=== PATIENT | female | born 1945 | race Caucasian/White ===

== ENCOUNTER 2016-02-15 09:00 | Outpatient (RCR) | payer MEDICARE ==
--- NOTE | 2015-12-12 13:24 | PT/OT/ST INITIAL EVALUATION ---
Department of Health and Human Services Form Approved Health Care Financing Administration B No. [id number] PLAN OF CARE/ASSESSMENT FOR OUTPATIENT REHABILITATION (Complete for Initial Claims Only) 1. LAST NAME Shlomo FIRST NAME Sofie Osborne 2. ACC # [id number] 3. [facility] [phone] 4. PROVIDER NO. [id number] 5. TYPE: X PT 6. PRIOR THERAPY (Same condition) 7. PRIMARY DX Right sacroiliitis 8. SECONDARY DX Low back pain with radiculopathy 9. ONSET DATE 3 to 4 days ago 10. REFERRAL DATE 12/07/15 11. SOC. DATE/TIME 12/07/2015 13:09 12. PRIOR LEVEL OF FUNCTION; PERTINENT HISTORY (Prior therapy results, reason for referral.) S: Prior to therapy, the patient did consent to today's evaluation and treatment. The patient is a 70-year-old female referred to physical therapy by Dr. Luna to address right sacroiliitis. The patient does rate her overall and general health as good. The patient states Saturday prior to this evaluation she noticed some pain in the front of her right hip where she had pain with each step. However, this resolved and the patient was able to get on with her day. The patient then, on Saturday, carried her heavy sewing machine and Saturday night had a significant increase in pain to the point where she was unable to roll over in bed or move. The patient called her daughter, who came over to get her moving and to see if she needed to seek medical assistance. The patient did state at this time she had difficulty walking, but was able to get around "well enough." The patient states the pain then resolved somewhat until she was having lunch with her daughter and was unable to get up from a seated position earlier on this date of 12/07/2015- her daughter then took her to the doctor. The patient states she is having significant pain in the front of her right leg, which runs down the front inside of her leg to approximately the knee level. A few times the patient states the pain has been down to her ankle. The patient additionally has a few pains that shoot up her back. 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 Prior function: Includes the patient being able to perform all activities around her house, self care, as well as being mobile within the community. Current function: Currently the patient requires assistance to get into community as her daughter has to drive her and help her walk between the cares and home or other buildings she has to visit. The patient is also needing assistance for self-care at this time and assistance with walking. Therapy History: None has been performed for this condition. No obstacles of delivery of care are observed. Maximal pain level is 10/10. The patient describes the pain as an intense aching sensation in her right lower extremity. Aggravating factors includes any prolonged positions. Relieving factors are unknown. Diagnostic tests: Include x-rays in the past, which do show osteoarthritis throughout her body. Past medical history: Includes breast cancer with left upper extremity lymphedema, low blood pressure and osteoarthritis. Medication list: Include prednisone for this condition and a muscle relaxer. The patient will provide a list of additional medications at a future visit. The patient's goal for physical therapy is to get rid of the pain and back to normal activities, especially sewing, which is a favorite hobby of hers. 13. INITIAL ASSESSMENT/SAFETY PRECAUTIONS/MEDICAL COMPLICATIONS (Level of function at start of care. Be specific, use objective measures, list problems.) O: APPEARANCE AND OBSERVATION: The patient presents as an older female, who ambulates with an antalgic gait pattern without an assistive device. The patient does have decreased right stance pain. PALPATION: With palpation, the patient does have significant increased pain and tightness with palpation of the right greater trochanter and the right IT band. The patient does have slight increased tone and tightness throughout the low back, hip flexor and quadriceps muscles. SPECIAL TESTS: Include deep tendon reflexes, which were 2+/4 or within normal limits for patellar and Achilles. The patient did have a positive crossover test indicating a slight left posterior innominate. She also had a positive MARGARITO test- indicating possible OA. RANGE OF MOTION/FLEXIBILITY: Hamstring flexibility on the right 147 degrees, on the left 159 degrees. Piriformis flexibility is 50% limited on the right, within normal limits on the left. Hip extension is lacking 10 degrees from neutral on the right, 0 degrees or to neutral on the left. Hamstring flexibility is within normal limits bilaterally with no signs of neural tension. STRENGTH: Throughout the left lower extremity is grossly 4/5 throughout. Throughout the right lower extremity grossly 3/5 with the exception of hip abduction, which is 3-5. Core strength tests a level 0.3/3 April, which was difficult to initiate contraction and pain was reported. TODAY'S TREATMENT: Following the initial evaluation, therapeutic exercise was performed and issued as a home exercise program. An electrical stimulation treatment with a moist heat pack was then performed through the right piriformis and low back and greater trochanter area. The patient did report decreased pain following today's treatment. 14. INITIAL POC: (Specify procedures, modalities, short and termite control technician goals) A: The patient presents at physical therapy with diagnosis of right sacroiliitis with resultant increased pain, decreased gait, decreased activity tolerance and decreased strength. PROGNOSIS: The patient does have a good prognosis with regular therapy attendance and compliance with home exercise program. This patient is expected to benefit from physical therapy services in order to decreased pain, increased activity tolerance for return to prior activities. Her symptoms are consistent with low back pathology. OUTCOME ASSESSMENT: Modified Oswestry low back pain disability questionnaire which scored 60% disability. FUNCTIONAL LIMITATION CODES: F9117-OD and F9359-LY GOALS: 1. The patient to be independent and compliant with home exercise program in 1 week. 2. The patient with a 50% decrease in maximum right lower extremity pain to allow sleeping at night in 2 weeks. 3. The patient with right lower extremity strength at least 4/5 throughout in 4 weeks to allow community mobility. 4. The patient with a Modified Oswestry low back pain disability questionnaire no more than 20% limited to allow return to hand stamper in 6 weeks. The diagnosis, prognosis, treatment plan, risks and expected outcome were discussed with the patient and the patient did agree to today's established plan of care. PLAN: Plan to treat the patient 3 times per week for 6 weeks in order to address right sacroiliitis. Therapeutic treatments to include modalities to decrease pain, inflammation and spasming. Manual therapy techniques as indicated. Therapeutic exercise targeting active range of motion and core stabilization activities, gait training, balance and proprioceptive training, and patient education and home exercise program to be advanced as warranted. 15. FUNCTIONAL LEVEL (End of claim period) 16. PHYSICIAN SIGNATURE ? ON FILE OR ENTER HERE: 17. DATE: I certify the need for these services furnished under this plan of care and if for partial hospitalization. 18. CERTIFICATION FROM THROUGH FORM
[~2016-02-15 09:00] MED LIST: CEPH-507 PO; DIGO125T PO; FURO20TA4 PO; LEVO125T70 PO; MIDO10TA PO; MTP50T PO; POTA99TA16 PO; WARF4TAB PO
== END 2016-02-28 09:58 | disposition home or self-care (01) ==
LOC: PT 09:00
PROVIDERS: ATTEND Family Medicine
DX: M46.1 Sacroiliitis, not elsewhere classified (principal)
CPT/HCPCS: 97001; 97033; 97035; 97110; 97140; G0283; G8978; G8979; G8980; 97014

== ENCOUNTER → 2016-04-13 | Outpatient (CLI) | payer MEDICARE ==
[~2016-04-13] MED LIST changes: -CEPH-507 PO; +COSYNTROPIN 0.25 MG/ML (CORTROSYN) VIAL IV ONE; -DIGO125T PO; -FURO20TA4 PO; -LEVO125T70 PO; -MIDO10TA PO; -MTP50T PO; +NS FLUSH 10 ML PRN IV; +NS FLUSH 3 ML PRN IV; -POTA99TA16 PO; -WARF4TAB PO
[2016-04-13 09:28] VITALS: BP 128/74
== END ==
LOC: LAB 09:04
PROVIDERS: ATTEND Family Medicine
DX: I95.9 Hypotension, unspecified (principal)
CPT/HCPCS: 36000; 82533; J0834; 96374

== ENCOUNTER 2016-06-30 17:58 | Emergency (ER) | payer MEDICARE ==
[~2016-06-30] VITALS: Ht 170.2 cm; Wt 84.0 kg
[~2016-06-30 17:58] MED LIST changes: +CEPH-507 PO; -COSYNTROPIN 0.25 MG/ML (CORTROSYN) VIAL IV ONE; +DIGO125T PO; +FURO20TA4 PO; +LEVO125T70 PO; +MIDO10TA PO; +MTP50T PO; -NS FLUSH 10 ML PRN IV; -NS FLUSH 3 ML PRN IV; +POTA99TA16 PO; +WARF4TAB PO
--- OUTSIDE RECORDS SUMMARY | 2016-06-30 18:02 | XMS REPORT | Continuity of Care Document ---
Author Author [facility] Organization [facility] Address Unknown Phone Unavailable Care Team Providers Care Parts Consultant Name Role Phone HAFSAHIEU Prado MD PCP [phone] Insurance Providers Payer Name Policy Number Subscriber Name Relationship Medicare A And B [id number] Sofie Keenan 16 Self / Same As Patient [facility] [id number] Sofie Keenan 16 Self / Same As Patient Problems Active Problems Medical Problem Onset Date Status Cataract of right eye Unknown Acute Cellulitis of left upper extremity Unknown Acute Lymphedema of left arm Unknown Acute Medications Current Home Medications Medication Dose Units Route Directions Days/Qty Instructions Start Date Potassium Gluconate 99 Mg 99 Mg ORAL Daily 12/03/14 Levothyroxine Sodium (Synthroid) 125 Mcg 125 Mcg ORAL Daily 12/03/14 Digoxin 125 Mcg 125 Mcg ORAL Daily 12/03/14 Warfarin Sodium 4 Mg 4 Mg ORAL Daily 12/03/14 Metoprolol Tartrate (Lopressor) 50 Mg 50 Mg ORAL Daily 12/03/14 Midodrine Hcl 10 Mg 10 Mg ORAL Daily 12/03/14 Furosemide 20 Mg 20 Mg ORAL Daily 12/06/14 Cephalexin 500 Mg 1,000 Mg ORAL Three Times A Day 60 02/02/16 Social History No social history. Hospital Discharge Instructions No hospital discharge instructions. Plan of Care Prescriptions See Medication Section Functional Status No functional status results. Allergies, Adverse Reactions, Alerts Allergen Type Severity Reaction Status Last Updated Sulfa (Sulfonamide Antibiotics) Allergy Unknown Active 12/03/14 Meperidine Allergy Unknown Active 12/03/14 Immunizations No immunization records. Vital Signs Acute Vital Signs Vital Response Date/Time Temperature (Fahrenheit) 98.3 02/02/2016 4:43pm Pulse 71 bpm 02/02/2016 4:43pm Respirations 20 02/02/2016 4:43pm Results No known relevant diagnostic tests, laboratory data and/or discharge summary. Procedures No known history of procedures. Encounters Encounter Location Arrival/Admit Date Discharge/Depart Date Attending Provider Discharged Recurring [facility] 02/15/16 9:00am 02/28/16 9:58am HIEU PEREYRA MD Registered Clinic [facility] 02/02/16 3:57pm MANUEL HERNANDEZ
[2016-06-30] MEDS ORDERED: OMEG1CAP24 PO (18:26)
[2016-06-30] MEDS ORDERED: VITA400T9 PO (18:26)
[2016-06-30] MEDS ORDERED: MULT-35 PO (18:26)
--- NOTE | 2016-06-30 18:52 | Diagnostic Imaging Report ---
Indication: Mid right foot pain, particularly overlying the second-fourth metatarsals. Patient reports foot was smashed by heavy object. Discussion: Three views of the right foot were obtained, no comparison. The bones are diffusely osteopenic. Mild degenerative changes are noted within the first MTP joint. There is marked soft tissue swelling of the posterior mid foot soft tissues. No radiopaque foreign body. No acute fracture or dislocation. Small plantar calcaneal enthesophyte is present. Impression: Right foot soft tissue swelling. No acute fracture or radiopaque foreign body identified. Dictated by: Dictated on workstation # [id number]
[2016-06-30 19:08] VITALS: BP 136/66
== END 2016-06-30 19:06 | disposition home or self-care (01) ==
LOC: ED 18:02
DX: S90.31XA Contusion of right foot, initial encounter (principal); W20.8XXA Other cause of strike by thrown, projected or falling object, initial encounter; Y92.009 Unspecified place in unspecified non-institutional (private) residence as the place of occurrence of the external cause
CPT/HCPCS: 99282